=== PATIENT | female | born 1940 | race Caucasian/White ===

== ENCOUNTER 2019-04-20 15:29 | Emergency (ER) | payer MEDICARE, OTHER, SELFPAY ==
[2019-04-20 15:41] VITALS: BP 131/86; PULSE 92; RESP 16; TEMP 36.6; O2SAT 91; BMI 30.9
--- NOTE | 2019-04-20 15:51 | ED_ITS ---
HPI - Extremity Problem General: Chief complaint: Extremity Problem,Nontraumatic Stated complaint: right knee pain, swelling Time Seen by Provider: 04/20/19 15:51 Source: patient Mode of arrival: ambulatory Limitations: no limitations History of Present Illness: HPI Narrative: Patient reports turning over in bed last night to get up out of bed to go to the bathroom and felt a sudden sharp pain in her right knee. Ports difficulty of ambulating due to the pain to the knee. Patient reports some swelling to the lateral aspect of the knee. Patient appears well. Patient appears in no pain at rest. Patient has history of bilateral knee replacement. Review of Systems General: Reports: 10 or more systems reviewed and unremarkable except in HPI and below Musc: Reports: joint pain (right knee) PFSH ED PFSH: Statuses (acute, chronic, etc) shown below reflect problem list status as previously entered and may not be historically accurate Social History Smoking and tobacco status: former smoker Physical Exam Const: COMMON NORMALS: no apparent distress and oriented x3 GENERAL APPEARANCE: cooperative HENMT: COMMON NORMALS: normocephalic, external ears normal, EAC's normal, TM's normal bilaterally and external nose normal HEAD & SCALP: normal to inspection and normocephalic FACE & SINUS: normal facial exam NOSE: external nose normal GENERAL EAR: hearing not grossly impaired EXTERNAL EAR: Yes external ears normal EXTERNAL AUDITORY CANAL: EAC's normal TYMPANIC MEMBRANE: TM's normal bilaterally MOUTH: oral and palatal mucosa normal THROAT: posterior oropharynx normal Eye: COMMON NORMALS: PERRL and EOMs intact bilaterally PUPIL: Yes PERRL Neck/C-Spine: COMMON NORMALS: full ROM and no lymphadenopathy Lymph: LYMPHATIC: no lymphedema noted Chest: COMMONS NORMALS: inspection of chest normal and palpation of chest normal Resp: COMMON NORMALS: normal respiratory effort and clear to auscultation bilaterally AUSCULTATION: clear to auscultation bilaterally Cardio: COMMON NORMALS: regular rate and regular rhythm RATE: regular rate RHYTHM: regular rhythm GI: COMMON NORMALS: normal to inspection, nondistended, normoactive bowel sounds and non-tender : COMMON NORMALS: Yes no CVA tenderness BLADDER/KIDNEY EXAM: Yes no CVA tenderness Back/Pelvis: COMMON NORMALS: no CVA tenderness and thoracic and lumbar spine normal to inspection Extremity: COMMON NORMALS: normal to inspection GENERAL: Yes edema (right lateral knee) RIGHT LOWER EXTREMITY: Yes knee joint Right knee: Yes inspection (swelling lateral knee) and Yes palpation (tenderness lateral joint line) Neuro: COMMON NORMALS: oriented x3, moves all extremities and no focal motor deficits Psych: COMMON NORMALS: mental status grossly normal and cooperative Skin: COMMON NORMALS: no rashes or lesions noted GENERAL SKIN EXAM: no rashes or lesions noted Course Vital Signs: Vital signs: Vital Signs Temperature 97.9 F 04/20/19 15:41 Pulse Rate 92 04/20/19 15:41 Respiratory Rate 16 04/20/19 15:57 Blood Pressure 131/86 04/20/19 15:41 Pulse Oximetry 91 04/20/19 15:41 MDM - Extremity (Nontraumatic) MDM Narrative: Medical decision making narrative: Patient comes in today with complaints of right knee pain. Patient rolled over in bed last night and felt her knee have a sudden sharp pain. On exam we note some mild swelling to the lateral aspect of the knee joint. Distal pulses are normal. Skin is warm and dry color is pink. Differential diagnosis includes fracture, internal derangement of the knee, sprain, tendinitis. X-ray noted no bony abnormality or fracture. Reviewed exam with patient recommendations for treatment and need for follow-up. Patient was given 30 mg of ketorolac in the emergency room for pain. Patient reported some improvement of pain and reported understanding of care plan. Discharge Plan Discharge Patient Disposition: Home, Self-Care Clinical Impression: Acute pain of right knee Condition: Stable Prescriptions: New Celebrex 200 mg capsule 200 mg PO BID Qty: 10 RF: 0 Discharge Orders: Discharge Order (Routine); Ordered 04/20/19 Ordered By: Ismael Wayne Referrals: Aamir Garcia DO [Family Provider] - Discharge Diet: Usual diet Discharge Activity: Increase activity as tolerated Patient Instructions: Knee Sprain (ED) Activity Restrictions/Additional Instructions: Activity as tolerated Use walker to assist with movement Increase Celebrex to twice a day for the next 5 days Drink plenty of water with medication Use acetaminophen for further pain control Follow-up with primary care for further treatment Coding Level of Care Code 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
[2019-04-20 15:57] VITALS: RESP 16
--- NOTE | 2019-04-20 15:57 | XR_ITS ---
WS: [id number] RIGHT KNEE: 3 VIEW(S) TECHNIQUE: AP, oblique(s) and lateral. HISTORY: pain COMPARISON: None available. Prior RIGHT knee arthroplasty. Prosthetic components are in good position alignment. No fracture or l oosening. No joint space narrowing or osteophytes. Small suprapatellar joint effusion and mild soft tissue edema surrounding the knee. XR/XR knee RT 3V* [id number] IMPRESSION: 1. Status post RIGHT knee arthroplasty. No loosening or fracture. 2. Small suprapatellar effusion and soft tissue edema surrounding the knee.
[2019-04-20] MEDS: ketorolac 30 mg/mL INJ IM (16:11)
[2019-04-20 17:00] VITALS: BP 132/92; PULSE 89; RESP 16; O2SAT 96
== END 2019-04-20 17:01 | disposition home or self-care (01) ==
PROVIDERS: Emergency Provider Nurse Practitioner Family; Family Provider Internal Medicine
DX: M25.561 Pain in right knee (principal); Z87.891 Personal history of nicotine dependence
CPT/HCPCS: 73562; 96372; 99281; 99283; J1885

== ENCOUNTER 2019-04-28 15:29 | Outpatient (CLI) | payer MEDICARE, OTHER, SELFPAY ==
--- NOTE | 2019-04-28 | US_ITS ---
WS: [id number] RIGHT LOWER EXTREMITY VENOUS ULTRASOUND EXAMINATION CLINICAL INFORMATION: RIGHT LEG PAIN COMPARISON: None. FINDINGS: Thigh veins The right common femoral, femoral, popliteal, and deep femoral veins are patent and free of thrombus . The veins are normally compressible, and have normal phasic flow and augmentation response. Calf veins The paired peroneal and posterior tibial calf veins are patent bilaterally. US/ROR venous duplex LE RT IMPRESSION: No evidence of right lower extremity DVT.
== END 2019-04-28 15:30 | disposition home or self-care (01) ==
LOC: RADOUTREAD 04-29 10:15
PROVIDERS: Family Provider Internal Medicine; Visit Provider Internal Medicine
DX: Z76.89 Persons encountering health services in other specified circumstances (principal)

== ENCOUNTER 2019-05-08 10:23 | Emergency (ER) | payer MEDICARE, OTHER, SELFPAY ==
[2019-05-08 10:54] VITALS: BP 112/68; PULSE 82; RESP 18; TEMP 36.6; O2SAT 95; BMI 30.9
--- NOTE | 2019-05-08 11:10 | XR_ITS ---
WS: [id number] Right knee, 3 views, 05/08/2019 Clinical Data: pain Comparison: Right knee, 04/20/2019. Findings: The right knee arthroplasty is in good position. No loosening is seen. There are no fractures or disl ocations. The suprapatellar bursal fluid has diminished. XR/XR knee RT 3V* [id number] Impression: 1. No change in right knee arthroplasty. 2. Decrease in right suprapatellar bursal swelling.
--- NOTE | 2019-05-08 11:10 | ED_ITS ---
Entered by Nichol Rosenberg, acting as scribe for Santana Carbajal MD May 08, 2019 10:23 HPI - Extremity Problem General: Chief complaint: Extremity Problem,Nontraumatic Stated complaint: RIGHT KNEE PAIN Time Seen by Provider: 05/08/19 11:10 Source: patient Mode of arrival: wheelchair Limitations: no limitations History of Present Illness: HPI Narrative: 79 yo Female presents to ED with complaint of right knee pain. Pt states that this started about 4 weeks ago. Pt states that she woke up with pain and came into be seen and was told it was a sprain. Pt states that she had a knee replacement back in 2010. Pt states that she woke up this morning with pain again. Pt states that she went to see Dr. Garcia after her previous ER visit to get an ultrasound to make sure that she didn't have a blood clot. Pt states that she has a lot of swelling in her knee and she is worried that her knee hardware might not be in place correctly. MD Complaint: joint swelling and joint paint Onset (ago): week(s) Pain Consistency: intermittent Location: right and knee Severity scale (1-10): 9 Radiation: none Relieving factors: nothing Exacerbating factors: range of motion, weight bearing and walking Associated symptoms: Deny chest pain, fever(s) or rash Review of Systems Const: Denies: fever, chills, body aches or change in appetite Eyes: Denies: blurry vision or eye discomfort ENMT: Denies: throat pain or dental pain Card: Denies: chest pain Resp: Denies: shortness of breath GI: Denies: abdominal pain, nausea, vomiting or diarrhea : Denies: painful urination Musc: Reports: joint pain and joint swelling; Denies: neck pain or back pain Skin/Breast: Denies: rash Neuro: Denies: headache Psych: Denies: depression Sohail/Lymph: Denies: easy bruising All/Imm: Denies: hives PFS ED PFSH: Social History Smoking and tobacco status: never smoked Physical Exam Const: COMMON NORMALS: no apparent distress, oriented x3 and healthy appearing HENMT: COMMON NORMALS: normocephalic and head/scalp atraumatic HEAD & SCALP: normocephalic and atraumatic Eye: COMMON NORMALS: PERRL and EOMs intact bilaterally PUPIL: Yes PERRL Neck/C-Spine: COMMON NORMALS: full ROM and supple Chest: COMMONS NORMALS: inspection of chest normal and palpation of chest normal Resp: COMMON NORMALS: normal respiratory effort, no retractions, no use of accessory muscles and clear to auscultation bilaterally AUSCULTATION: clear to auscultation bilaterally Cardio: COMMON NORMALS: regular rate, regular rhythm and no murmurs RATE: regular rate RHYTHM: regular rhythm GI: COMMON NORMALS: normal to inspection, nondistended, normoactive bowel sounds, soft to palpation, non-tender and no masses PALPATION: Yes soft Extremity: COMMON NORMALS: full ROM; negative for normal to inspection GENERAL: Yes normal exam except as noted RIGHT LOWER EXTREMITY: Yes knee joint Right knee: Yes inspection (swelling) and Yes ROM (tenderness) Neuro: COMMON NORMALS: oriented x3, moves all extremities and no focal motor deficits Psych: COMMON NORMALS: mental status grossly normal, thought process normal and cooperative THOUGHT PROCESS: normal thought process Skin: COMMON NORMALS: no rashes or lesions noted and no wounds GENERAL SKIN EXAM: no rashes or lesions noted Course Vital Signs: Vital signs: Vital Signs Temperature 97.8 F 05/08/19 10:54 Pulse Rate 91 05/08/19 12:05 Respiratory Rate 18 05/08/19 12:05 Blood Pressure 135/85 05/08/19 12:05 Pulse Oximetry 94 05/08/19 12:05 MDM - Extremity (Nontraumatic) MDM Narrative: Medical decision making narrative: Patient presents here with knee pain likely a sprain. X-ray here shows no fracture. Exam is benign and she has no signs of septic joint. Patient is well-appearing here and is stable for discharge. She is to follow-up with Dr. Brunner in 3 to 5 days and return if worsening. Imaging Data^: XR Right knee: Radiologist's impression: [address] [place] [address] XRay Report Signed Patient: Asiya Tim #: [id number] : 9Acct#:[id number] Age/Sex: 79 / FADM Date: 05/08/19 Loc: ERRoom/Bed: Attending Dr: Ordering Provider/Ordering MD: Santana Carbajal MD Date of Service: 05/08/19 Procedure(s): XR knee RT 3V* [id number] Accession Number(s): [id number] Report Number: [id number] WS: [id number] Right knee, 3 views, 05/08/2019 Clinical Data: pain Comparison: Right knee, 04/20/2019. Findings: The right knee arthroplasty is in good position. No loosening is seen. There are no fractures or dislocations. The suprapatellar bursal fluid has diminished. XR/XR knee RT 3V* [id number] Impression: 1. No change in right knee arthroplasty. 2. Decrease in right suprapatellar bursal swelling. Dictated By:Violet Beckett MD Signed By:Violet Beckett MDSigned Date/Time:05/08/191124 DD/ 22 Discharge Plan Discharge Patient Disposition: Home, Self-Care Clinical Impression: Knee sprain Qualifiers: Encounter type: initial encounter Condition: Stable Prescriptions: New EC-Naprosyn 500 mg tablet,delayed release (DR/EC) 500 mg PO BID PRN (Reason: pain) Qty: 20 RF: 0 No Action Celebrex 200 mg capsule 200 mg PO BID Qty: 10 RF: 0 Discharge Orders: Discharge Order (Routine); Ordered 05/08/19 Ordered By: Santana Carbajal Referrals: Mary Gottlieb MD [Physician] - 4-7 days Aamir Garcia DO [Family Provider] - 4-7 days Discharge Diet: Advance as tolerated Discharge Activity: Resume usual activity Patient Instructions: Knee Sprain (ED) Discharge Date/Time: 05/08/19 12:07 Coding Level of Care Code ED 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
[2019-05-08] MEDS: naproxen 500 mg Tablet PO (11:46)
[2019-05-08 12:05] VITALS: BP 135/85; PULSE 91; RESP 18; O2SAT 94
--- NOTE | 2019-05-09 10:09 | DCPLANNER ---
intern product marketing manager had message to schedule a follow up appointment for patient with ortho. intern product marketing manager called the ortho clinic, spoke with Emeli, gave clinic patients information. intern product marketing manager was told that patients information would be printed and reviewed. Clinic will call nurse case manager and patient with appointment information.
--- NOTE | 2019-05-13 13:53 | DCPLANNER ---
Patient had an appointment scheduled for 05.12.19, patient did attend the appointment.
== END 2019-05-08 12:07 | disposition home or self-care (01) ==
PROVIDERS: Emergency Provider Emergency Medicine; Family Provider Internal Medicine
DX: S83.91XA Sprain of unspecified site of right knee, initial encounter (principal); X58.XXXA Exposure to other specified factors, initial encounter; Z96.651 Presence of right artificial knee joint
CPT/HCPCS: 73562; 99281; 99283

== ENCOUNTER → 2019-05-12 10:38 | Outpatient (BNVA) | payer MEDICARE, OTHER, SELFPAY | PROVIDERS: Family Provider Internal Medicine; Referring Provider Nurse Practitioner Family; Visit Provider Specialist | DX: M25.561 Pain in right knee (principal); Z96.651 Presence of right artificial knee joint | CPT/HCPCS: 73560; 73565 ==

== ENCOUNTER 2019-12-24 09:42 | Outpatient (CLI) | payer MEDICARE, OTHER, SELFPAY ==
--- NOTE | 2019-12-24 10:00 | FL_ITS ---
WS: [id number] UPPER GI WITH AIR TECHNICAL: Double contrast upper GI with thin and thick barium FLUOROSCOPY TIME: 3.9 minutes CLINICAL INFORMATION: R13.10 Dysphagia, unspecified COMPARISON: FINDINGS: Swallowing: Normal. Esophagus: Moderate esophageal dysmotility with tertiary contractions in the distal esophagus and sig nificant delayed emptying. 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 This is similar in appearance to 2018. Evidence of reflux esophagitis in the distal esophagus. Gastroesophageal reflux: Present Stomach: Normal. Duodenum: Normal. Other findings: Calcified breast implants. FL/FL upper GI w air* [id number] IMPRESSION: 1. Moderate esophageal dysmotility with tertiary contractions in the distal es ophagus and significant delayed emptying. 2. 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 This is similar in appearance to 2018. 3. No evidence of high-grade stricture. 4. No evidence of reflux esophagitis in the distal esophagus. 5. Reflux is visualized in the supine position to the hypopharynx. 6. Normal double contrast stomach and duodenum. *Patient completed exam without difficulty. Patient partially fainted upon step ping off the table and slowly lowered herself to the step with assistance. Macy ent was initially confused with right facial droop and no registered blood pres sure on the monitor. EMS was notified. Saturations remained above 95%. After a few minutes blood pressure returned to 140/70. Saturations remained normal but patient remained confused. EMS arrived after approximately 10 to 15 minutes fro m initial episode and Patient was taken to the ER
== END 2019-12-24 09:43 | disposition home or self-care (01) ==
PROVIDERS: Family Provider Internal Medicine; PCP Internal Medicine; Visit Provider Surgery
DX: R13.10 Dysphagia, unspecified (principal)
CPT/HCPCS: 74246

== ENCOUNTER 2019-12-24 10:56 | Emergency (ER) | payer MEDICARE, OTHER, SELFPAY ==
[2019-12-24] VITALS (20 sets, daily range): BP systolic 132–167; BP diastolic 85–112; PULSE 61–102; RESP 16–29; TEMP 36.7; O2SAT 95–100; BMI 30.6
--- NOTE | 2019-12-24 10:57 | ECG_ITS ---
[facility] [place] [facility] Date: 2019-12-24 Pat Name: Asiya Tim Department: Room: Gender: Female Vessel Traffic Officer: : 1940 Requested By: Waleska Mcknight Order Number: [id number] Florencio MD: Victor Hugo Antoine M.D. Measurements Intervals [place] Rate: 92 P: TX: -1 QRS: 94 QRSD: 106 T: 46 QT: 396 QTc: 491 Interpretive Statements ATRIAL FIBRILLATION WITH ABERRANT CONDUCTION OR VENTRICULAR PREMATURE COMPLEXES BORDERLINE RIGHT AXIS DEVIATION [QRS AXIS > 90] ABNORMAL RHYTHM ECG Compared to ECG 11/19/2017 12:36:19 Ventricular premature complex(es) now present Aberrant conduction of supraventricular beat(s) now present Sinus rhythm no longer present Electronically Signed On 12-25-2019 20:26:17 CDT by Victor Hugo Antoine M.D. [email or web address]
--- NOTE | 2019-12-24 10:57 | XRR_ITS ---
PROCEDURE INFORMATION: Exam: XR Chest, 1 View Exam date and time: 12/24/2019 11:51 AM Age: 79 years old Clinical indication: Stroke TECHNIQUE: Imaging protocol: XR of the chest Views: 1 view. COMPARISON: XR CHEST 01/10/2018 12:29 PM FINDINGS: Lungs: Bilateral bronchial wall thickening. No focal peripheral lung consolidation, air bronchogram formation, or silhouette sign. Pleural space: No pleural effusion or pneumothorax. Heart/Mediastinum: The cardiac silhouette is enlarged. The mediastinal contours are normal. Bones/joints: Prior right reverse total shoulder arthroplasty. Severe left glenohumeral joint degeneration. S-shaped curvature of the thoracic spine associated with multilevel disc degeneration. Soft tissues: Prior bilateral breast implants. XR/XR chest 1V portable [id number] IMPRESSION: 1. Cardiomegaly. 2. Acute versus chronic bronchial inflammation/edema
--- NOTE | 2019-12-24 11:02 | CT_ITS ---
WS: [id number] CT HEAD NONCONTRAST HISTORY: STROKE ALERT TECHNIQUE: Contiguous axial imaging performed through the brain in 2.5 mm imaging. Bone and soft tiss ue windows. Sagittal and coronal reformats reviewed. All CT scans at [facility] use at ast one of these dose optimization techniques: automated exposure control; mA and/or kV adjustment pe r patient size (includes targeted exams where dose is matched to clinical indication); or iterative r econstruction. DLP: 1507.73 COMPARISON: None available. Mild motion artifact. No areas of sulcal effacement. Mild chronic microvascular ischemic disease. Sma ll lacunar infarcts in the external capsules bilaterally. Prior infarct RIGHT occipital lobe. Mild atrophy. No inferior displacement of the cerebellar tonsils. Ventricles: Normal size with no hydrocephalus. Paranasal sinuses: As visualized are clear. Mastoid air cells: Well pneumatized. Calvarium and scalp: Skull is intact with no soft tissue edema or swelling. CT/CT head wo con* [id number] IMPRESSION: 1. No acute intracranial hemorrhage. 2. Mild atrophy and chronic ischemic disease and prior lacunar infarcts. Notified Waleska Hayden MD at 12/24/2019 11:13 AM.
--- NOTE | 2019-12-24 11:11 | W.ED.NEUROSD ---
HPI - Neuro Symptoms/Deficit General: Chief Complaint: Neuro Symptoms/Deficit Stated Complaint: poss stroke Time Seen by Provider: 12/24/19 10:57 History of Present Illness: HPI Narrative: This patient is an 79-year-old female who presents from [facility]. She was therefore in endoscopy. They were able to complete the study but when they were getting her up she became unresponsive and now has facial droop, aphasia and complete right-sided weakness. The onset was at 1030. She is not able to provide any further history. I spoke to her daughter who said she been in her normal state of good health. No prior history of strokes. She does not think that she is on any blood thinners. She is never heard her diagnosed with atrial fibrillation. She does have a history of Parkinson's. Time: 10:33 Timing confirmed by: other ([facility]) Location: speech, right arm, right leg and altered History of same: No Severity: severe Review of Systems General: Reports: ROS unobtainable due to mental status [facility] PFSH: Medical History CAD (coronary artery disease) Dysphagia Hyperlipidemia Hypertension MVP (mitral valve prolapse) Parkinsonian syndrome Surgical History History of total bilateral knee replacement (TKR) Family History Denies family history of Anesthesia complication Bleeding disorder Social History Smoking and tobacco status: never smoked Alcohol intake: never NIH stroke score NIHSS: Level Of Consciousness - 1a: 2 Level Of Consciousness Questions - 1b: Neither Correct Level Of Consciousness Commands - 1c: Neither Correct Best Gaze - 2: Partial Gaze Palsy Facial Palsy - 4: Complete Paralysis Motor Arm Right - 5: No Movement Motor Arm Left - 5: No Drift Motor Leg Right - 6: No Movement Motor Leg Left - 6: Effort Against [place] Best Language - 9: Mute; Global Aphasia Physical Exam Const: EXAM LIMITATIONS: altered mental status GENERAL APPEARANCE: lethargic NUTRITIONAL APPEARANCE: overweight ORIENTATION/CONSCIOUSNESS: Yes lethargic HENMT: HEAD & SCALP: normal to inspection FACE & SINUS: other (Facial droop) Eye: GENERAL EYE: appearance normal, both eyes and all related structures VISUAL ACUITY: Yes other (Unable to assess, eyes deviated to the left but not fixed) Neck/C-Spine: COMMON NORMALS: supple and no JVD Chest: COMMONS NORMALS: normal inspection of the chest Resp: COMMON NORMALS: normal respiratory effort, No use of accessory muscles and clear to auscultation bilaterally AUSCULTATION: clear to auscultation bilaterally Cardio: COMMON NORMALS: no JVD and No murmurs present (Cardio) RHYTHM: abnormal rhythm irregularly irregular GI: COMMON NORMALS: Normal to inspection, nondistended, normoactive bowel sounds present, Soft to palpation and non-tender INSPECTION: Yes normal to inspection AUSCULTATION: Yes normoactive bowel sounds PALPATION: Yes Soft to palpation Back/Pelvis: COMMON NORMALS: thoracic and lumbar spine normal to inspection Extremity: COMMON NORMALS: normal to inspection Neuro: COMMON NORMALS: no focal motor deficits SENSORIUM/ORIENTATION: Yes lethargic CRANIAL NERVES: Yes CN VII (facial) SPEECH: Total aphasia GAIT: Yes Unable to assess gait MOTOR EXAM: Abnormal motor strength present (No effort against gravity on the right side. Some effort against gravity in the left leg. Able to hold the left arm up with minimal drift) Skin: COMMON NORMALS: no rashes or lesions noted and turgor normal GENERAL SKIN EXAM: no rashes or lesions noted and turgor normal Course ED course: On arrival I went to CT with the patient. She has an obvious right-sided hemiplegia. CT did not show any acute stroke. Her blood pressure was within limits. She is not on any blood thinners. She has no contraindications to TPA. The patient was not able to participate in decision-making but her daughter was here and was able to do so. We explained the options and risks to her and she agreed to proceed with TPA. [facility] neurology was consulted and also agreed with TPA. She is going back for a CTA. She has had some improvement already. She is able to speak. She has some movement of her right leg. Her EKG does show A. fib. Vital signs are normal at this time. Reevaluation(s): Reevaluation #1: On reevaluation at approximately 1230 the patient is nearly back to baseline. She is able to speak clearly. She is moving all 4 extremities. She does have a little bit of drift on the right. I spoke again with Dr. Rodgers at [facility] and we will still go ahead and get the CTA to determine the best placement for her. Reevaluation #2: Patient has really returned to baseline. She is hungry and would like to eat. My earlier history reports that she was having an endoscopy and apparently that is incorrect. She was actually having a barium swallow study. She was not under any anesthesia. She was accepted to [facility] by Dr. Michelle. The patient's family requested that we try to find a bed closer than [facility] and although [facility] was willing to accept her we did transfer to [facility]. Vital Signs: Vital signs: Vital Signs Temperature 98.1 F 12/24/19 10:57 Pulse Rate 61 12/24/19 16:00 Respiratory Rate 18 12/24/19 18:32 Blood Pressure 132/94 12/24/19 16:00 Pulse Oximetry 98 12/24/19 16:00 MDM - Neuro Symptoms/Deficit Lab Data: Labs: Lab Results 12/24/19 12/24/19 12/24/19 Range/Units 11:00 11:00 11:13 WBC 9.2 (4.0-10.0) 10^3/ uL RBC 4.30 (4.1-5.3) 10^6/u L Hgb 12.5 (11.5-15.3) g/dL Hct 41.0 (37.0-47.0) % MCV 95.3 (81-99) fL MCH 29.1 (28.0-34.0) pg MCHC 30.5 (30.0-36.0) g/dL RDW 15.3 H (12.1-15.1) % Plt Count 404 H (130-400) 10^3/c mm MPV 9.5 (7.4-10.4) fL Neut % (Auto) 67.6 % Lymph % (Auto) 20.0 % Spencer % (Auto) 8.8 % Eos % (Auto) 2.7 % Baso % (Auto) 0.7 % Neut # (Auto) 6.21 (1.8-7.7) 10^3/u L Lymph # (Auto) 1.8 (0.8-4.8) 10^3/u L Spencer # (Auto) 0.8 (0.2-0.9) 10^3/u L Eos # (Auto) 0.3 (0.0-0.8) 10^3/u L Baso # (Auto) 0.1 (0.0-0.1) 10^3/u L Nucleated RBC % (a uto) 0 % Nucleated RBCs # 0.0 /100WBC PT Cancelled INR Cancelled APTT Cancelled Sodium Cancelled Potassium Cancelled Chloride Cancelled Carbon Dioxide Cancelled Anion Gap Cancelled BUN Cancelled Creatinine Cancelled GFR Calculation Cancelled Glucose Cancelled POC Glucose (70-110) mg/dL Calculated Osmolal ity Cancelled Calcium Cancelled Total Bilirubin Cancelled AST Cancelled ALT Cancelled Alkaline Phosphata se Cancelled Total Protein Cancelled Albumin Cancelled Globulin Cancelled Urine Color (Yellow) Urine Appearance (CLEAR) Urine pH (5-7) Ur Specific Gravit y (1.005-1.030) Urine Protein (Negative) Urine Glucose (UA) (Normal) Urine Ketones (Negative) Urine Blood (Negative) Urine Nitrate (Negative) Urine Bilirubin (Negative) Urine Urobilinogen (Negative) mg/dL Ur Leukocyte Lila ase (Negative) SARS-CoV-2 Ag (Rap id) (Negative) 12/24/19 12/24/19 12/24/19 Range/Units 11:14 11:22 11:35 WBC (4.0-10.0) 10^3/ uL RBC (4.1-5.3) 10^6/u L Hgb (11.5-15.3) g/dL Hct (37.0-47.0) % MCV (81-99) fL MCH (28.0-34.0) pg MCHC (30.0-36.0) g/dL RDW (12.1-15.1) % Plt Count (130-400) 10^3/c mm MPV (7.4-10.4) fL Neut % (Auto) % Lymph % (Auto) % Spencer % (Auto) % Eos % (Auto) % Baso % (Auto) % Neut # (Auto) (1.8-7.7) 10^3/u L Lymph # (Auto) (0.8-4.8) 10^3/u L Spencer # (Auto) (0.2-0.9) 10^3/u L Eos # (Auto) (0.0-0.8) 10^3/u L Baso # (Auto) (0.0-0.1) 10^3/u L Nucleated RBC % (a uto) % Nucleated RBCs # /100WBC PT Cancelled INR Cancelled APTT Cancelled Sodium 142 Potassium 4.3 Chloride 103 Carbon Dioxide 26 Anion Gap 17.3 BUN 25 H Creatinine 1.2 H GFR Calculation Not Reportable Glucose 122 H POC Glucose 105 (70-110) mg/dL Calculated Osmolal ity 300 H Calcium 9.8 Total Bilirubin 0.5 AST 19 ALT 19 Alkaline Phosphata se 74 Total Protein 6.9 Albumin 4.2 Globulin 2.7 Urine Color (Yellow) Urine Appearance (CLEAR) Urine pH (5-7) Ur Specific Gravit y (1.005-1.030) Urine Protein (Negative) Urine Glucose (UA) (Normal) Urine Ketones (Negative) Urine Blood (Negative) Urine Nitrate (Negative) Urine Bilirubin (Negative) Urine Urobilinogen (Negative) mg/dL Ur Leukocyte Lila ase (Negative) SARS-CoV-2 Ag (Rap id) (Negative) 12/24/19 12/24/19 12/24/19 Range/Units 12:05 13:55 15:10 WBC (4.0-10.0) 10^3/ uL RBC (4.1-5.3) 10^6/u L Hgb (11.5-15.3) g/dL Hct (37.0-47.0) % MCV (81-99) fL MCH (28.0-34.0) pg MCHC (30.0-36.0) g/dL RDW (12.1-15.1) % Plt Count (130-400) 10^3/c mm MPV (7.4-10.4) fL Neut % (Auto) % Lymph % (Auto) % Spencer % (Auto) % Eos % (Auto) % Baso % (Auto) % Neut # (Auto) (1.8-7.7) 10^3/u L Lymph # (Auto) (0.8-4.8) 10^3/u L Spencer # (Auto) (0.2-0.9) 10^3/u L Eos # (Auto) (0.0-0.8) 10^3/u L Baso # (Auto) (0.0-0.1) 10^3/u L Nucleated RBC % (a uto) % Nucleated RBCs # /100WBC PT 13.90 INR 1.04 APTT 30.2 Sodium Potassium Chloride Carbon Dioxide Anion Gap BUN Creatinine GFR Calculation Glucose POC Glucose (70-110) mg/dL Calculated Osmolal ity Calcium Total Bilirubin AST ALT Alkaline Phosphata se Total Protein Albumin Globulin Urine Color Yellow (Yellow) Urine Appearance Clear (CLEAR) Urine pH 7 (5-7) Ur Specific Gravit y 1.010 (1.005-1.030) Urine Protein Neg (Negative) Urine Glucose (UA) Norm (Normal) Urine Ketones Negative (Negative) Urine Blood Neg (Negative) Urine Nitrate Negative (Negative) Urine Bilirubin Neg (Negative) Urine Urobilinogen Neg (Negative) mg/dL Ur Leukocyte Lila ase Negative (Negative) SARS-CoV-2 Ag (Rap id) Negative (Negative) Discharge Plan Discharge Patient Disposition: Xfer Other Referrals: Aamir Garcia DO [Primary Care Provider] - Discharge Date/Time: 12/24/19 18:32 Coding Level of Care Code ED Medical Technologist for Chg Fwd Exam Comprehensive
[2019-12-24 11:18] LABS: Glucose Point of Care 105 mg/dL (70-110)
[2019-12-24 11:21] LABS: Basophils # 0.1 10^3/uL (0.0-0.1); Basophils % 0.7 %; Eosinophils # 0.3 10^3/uL (0.0-0.8); Eosinophils % 2.7 %; Hemoglobin 12.5 g/dL (11.5-15.3); Lymphocytes # 1.8 10^3/uL (0.8-4.8); Mean Corpuscular HGB Conc 30.5 g/dL (30.0-36.0); Mean Corpuscular Hemoglobin 29.1 pg (28.0-34.0); Mean Corpuscular Volume 95.3 fL (81-99); Mean Platelet Volume 9.5 fL (7.4-10.4); Monocytes # 0.8 10^3/uL (0.2-0.9); Monocytes % 8.8 %; Neutrophils # 6.21 10^3/uL (1.8-7.7); Neutrophils % 67.6 %; Nucleated Red Blood Cells % 0 %; Platelet Count 404 10^3/cmm (130-400); Red Cell Distribution Width 15.3 % (12.1-15.1); White Blood Count 9.2 10^3/uL (4.0-10.0)
--- NOTE | 2019-12-24 11:26 | CT_ITS ---
WS: [id number] CT ANGIOGRAM CEREBRAL AND CAROTID ARTERIES HISTORY: stroke TECHNIQUE: CT angiogram is performed of the carotid and cerebral arteries. During arterial injection imaging is obtained from the skull vertex to the aortic arch in 1.25 mm imaging. Coronal and sagittal reformats are submitted. Additional multi planar reformats of the carotid and cerebral arteries are submitted, MIP imaging also reviewed. NASCET criteria utilized. All CT scans at [facility] use at least one of these dose optimization techniques: automated exposure control; mA and/or kV ad justment per patient size (includes targeted exams where dose is matched to clinical indication); or iterative reconstruction. CONTRAST: Visipaque 320; 95 mL IV. DLP: 2260.25 mGy.cm COMPARISON: None available. Carotid Angiogram: Right carotid: Common carotid artery: Arises normally from the innominate artery. No significant plaque or stenosis. Internal carotid artery: No plaque or stenosis. External carotid artery: Patent. Left carotid: Common carotid artery: Arises normally from the aorta. No significant plaque or stenosis. Internal carotid artery: No plaque or stenosis. External carotid artery: Patent. Right vertebral artery: Tortuous but patent. The proximal artery is poorly visualized due to artifact from the upper thorax and breathing. Left vertebral artery: Unremarkable. Arises normally from the subclavian artery. Subclavian arteries: Limited by motion. No abnormality detected. Upper thorax: Mild interstitial thickening in the upper lung young with motion artifact. High densit y oral contrast in the mid to distal esophagus. Recent upper GI examination. There are a few mediasti nal and hilar lymph nodes. Lymph nodes are indeterminate with the largest in the RIGHT paratracheal l ocation measuring 11 mm. Thyroid gland: Normal. Osseous structures: Moderate spondylitic changes with no fracture. CEREBRAL ANGIOGRAM: Intracranial vertebral arteries: Normal with no significant atherosclerosis. Basilar artery: No significant stenosis or occlusion. No aneurysm. Intracranial Internal carotid arteries: Demonstrates no significant stenosis or plaque. Middle cerebral arteries: Normal. Anterior cerebral arteries and ACOM: Normal. Posterior cerebral arteries and PCOM's: Normal. Enlarged LEFT superior ophthalmic vein. Dural venous sinuses are normally enhancing. Mastoid air cells: Normal. Paranasal sinuses: Normal. Calvarium: Normal. CT/CT angio headneck* [id number] IMPRESSION: 1. No significant carotid artery stenosis. 2. Unremarkable [place] of [place]. 3. Enlarged tortuous LEFT superior ophthalmic vein of uncertain etiology. May be an incidental finding. Can be visualized in patients with an carotid caverno us fistula, varix, increased intracranial pressure or Graves' disease.
--- NOTE | 2019-12-24 12:11 | PC.NURSE ---
Patient becoming more alert, speech is improving. Patient asking for sister and displaying signs of pain. Sister to bedside with patient
[2019-12-24 12:32] LABS: INR 1.04 (0.8-1.2)
[2019-12-24 12:33] LABS: Partial Thromboplastin Time 30.2 SECONDS (23.9-36.7)
[2019-12-24 13:18] LABS: Alanine Aminotransferase 19 U/L (0-33); Albumin Level 4.2 g/dL (3.5-5.2); Alkaline Phosphatase 74 IU/L (35-105); Anion Gap 17.3 (5-19); Aspartate Amino Transferase 19 U/L (0-32); Blood Urea Nitrogen 25 mg/dL (8-23); Calcium 9.8 mg/dL (8.5-10.5); Carbon Dioxide 26 mmol/L (22-29); Chloride 103 mmol/L (98-107); Globulin 2.7 g/dL (1.3-4.6); Glucose 122 mg/dL (65-115); Osmolality Calculated 300 mOsm/kg (285-295); Potassium 4.3 mmol/L (3.5-5.1); Sodium 142 mmol/L (136-145); Total Bilirubin 0.5 mg/dL (0.15-1.2); Total Protein 6.9 g/dL (6.6-8.7)
[2019-12-24] MEDS: iodixanol 320 mg/mL 100mL Btl IV (13:35)
[2019-12-24 14:12] LABS: Add Urine Microscopic? NO
[2019-12-24 14:19] LABS: Bilirubin Urine Neg (Negative); Blood Urine Neg (Negative); Glucose Urine UA Norm (Normal); Ketones Urine Negative (Negative); Leukocyte Esterase Urine Negative (Negative); Nitrate Urine Negative (Negative); Protein Urine Neg (Negative); Urine Appearance Clear (CLEAR); Urine Color Yellow (Yellow); Urobilinogen Urine Neg (Negative); pH Urine 7 (5-7)
[2019-12-24 15:35] LABS: SARS Covid-2 Antigen Negative (Negative)
== END 2019-12-24 18:32 | disposition other institution (70) ==
PROVIDERS: Emergency Provider Emergency Medicine; Family Provider Internal Medicine; PCP Internal Medicine
DX: R29.810 Facial weakness (principal); R47.01 Aphasia; I25.10 Atherosclerotic heart disease of native coronary artery without angina pectoris; E78.5 Hyperlipidemia, unspecified; I10 Essential (primary) hypertension; G20 Parkinson's disease
CPT/HCPCS: 12345; 36415; 36416; 70450; 70496; 70498; 71045; 80053; 81003; 82962; 85025; 85610; 85730; 87426; 93005; 96374; 99284; 99285; J2997; Q9967

== ENCOUNTER 2020-03-25 10:39 | Outpatient (CLI) | payer MEDICARE, OTHER, SELFPAY ==
--- NOTE | 2020-03-25 10:51 | ECG_ITS ---
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 Interpretive Statements NAME OF STUDY: LEXISCAN SESTAMIBI STRESS TEST INDICATION: Congestive Heart Failure PROCEDURE: At the baseline, the EKG revealed atrial fibrillation with a controlled ventricular response rate of 85 bpm.. The baseline blood pressure was 151/96 mm Hg with a heart rate of 85 beats/min. Lexiscan was infused over a period of 20 seconds. A total of 0.4 milligrams of Lexiscan was infused. The stress phase was continued for a total of 5 minutes. Heart rate at the end of the stress phase was 92 with a blood pressure 143/72. The EKG at the peak infusion revealed no significant changes. Sestamibi was injected 20 seconds after the Lexiscan infusion. Blood pressure at the end of the recovery phase was 143/74 with a heart rate of 90 per minute. CONCLUSION: 1. No significant EKG changes with the LexiScan infusion 2. No LexiScan induced chest pain or cardiac arrhythmia 3. Normal blood pressure and heart rate response 4. Sestamibi/sestamibi perfusion scan pending; see separate report. Electronically Signed On 03-26-2020 14:08:01 [employer]OX TOE by Sally Garcia M.D. [email or web address]
--- NOTE | 2020-03-25 10:52 | NMCV_ITS ---
NM michelle perf SPECT r/s* [id number] Asiya Tim Age: 80 Gender: F : 1940 Exam Date: 03/25/2020 12:01 Ordering Phys: Kristina Anglin Technologist: YVON Chandler Exam Location: [facility] Indications: Heart failure STRESS TEST Please see separate stress test report in [facility] for full findings IMAGE PROTOCOL Rest/Stress 1 Lexiscan Day Radiopharmaceutical Dose (mCi) Administration Site Administered by Rest: Tc-99m 11.0 IV YVON Chandler Sestamibi Stress:Tc-99m 32.9 IV YVON Chandler Sestamibi Rest: 25-Mar-2020 60 Discovery 630 Stress: 25-Mar-2020 45 Discovery 630 0.4mg Lexiscan. Supine position only as patient was unable to lay prone. Patient unable to hold arms above hesd SPECT RESULTS Technical Quality: Good Raw Data Analysis: Subdiaphragmatic activity Image Corrections: No attenuation or motion correction applied Summed Stress Score: 0 Summed Rest Score: 5 Summed Difference Score: 0 PERFUSION FINDINGS Mild to moderate area of decreased uptake in the mid and apical anterior, apical septal, apical lateral and apical inferior regions. No significant reversibility was noted in these regions. FUNCTIONAL RESULTS (calculated via Gated SPECT) Stress Image LV EF (%): 21 Stress EDV (mL):145 TID: 1.04 Stress ESV (mL):115 FUNCTIONAL FINDINGS: Segmental wall motion analysis revealed severe diffuse hypokinesia of the left ventricle. IMPRESSIONS #1. Myocardial perfusion imaging revealing is small to moderate area of persistent decreased tracer uptake in the mid and apical anterior and apical segments, suggestive of myocardial scarring versus attenuation artifact. #2. LV wall motion analysis revealing diffuse hypokinesia of the left ventricle. #3. LV ejection fraction was estimated to be 21%. #4. Moderately dilated LV cavity with an end-systolic volume of 115 mL. No significant coronary ischemia, based on the above findings. No similar previous studies are available for comparison. 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 Dr Sally Garcia MD [facility] (Electronically Signed) Final Date: 25 March 2020 18:36 S
[2020-03-25] MEDS: regadenoson 0.4 Mg/5 ml Syringe IVP (12:45)
[2020-03-25 12:50] VITALS: BP 143/74; PULSE 93
== END 2020-03-25 10:40 | disposition home or self-care (01) ==
LOC: CDL 10:51
PROVIDERS: PCP Internal Medicine; Visit Provider Registered Nurse
DX: I50.22 Chronic systolic (congestive) heart failure (principal); I48.0 Paroxysmal atrial fibrillation
CPT/HCPCS: 78452; 93017; A9500; J2785

== ENCOUNTER 2020-05-07 14:49 | Outpatient (CLI) | payer MEDICARE, OTHER, SELFPAY ==
--- NOTE | 2020-05-07 14:54 | MM_ITS ---
WS: [id number] BILATERAL DIGITAL DIAGNOSTIC MAMMOGRAM MAMMOGRAPHY WITH CAD CLINICAL INFORMATION: LT BREAST LUMP/REDNESS COMPARISON: 019 TECHNIQUE: Bilateral CC, MLO, and ML views. FINDINGS: Scattered fibroglandular densities bilaterally. Heavily calcified breast implants. Punctate and lucen t centered calcifications. Palpable marker inner left breast with limited mammographic evaluation due to positioning and posterior depth. Ultrasound is pending. ULTRASOUND BREAST LEFT TECHNIQUE: Ultrasound left breast focused area of concern. CLINICAL INFORMATION: LT BREAST LUMP/REDNESS COMPARISON: None. FINDINGS: 3 hypoechoic dense lesions in the area of palpable concern appear to be contiguous with the wall of t he implant. Largest lesion at 9:00 measures 9.9 x 6.7 x 7.6 mm. Additional smaller lesion measuring 6 .7 x 3.2 x 8.1 mm. Similar-appearing Lesion at the 8:00 position measures 9.3 x 8.5 x 3.1 mm. These lesions appear imelda guous with the wall of the implant and are difficult to assess mammographically. These may represent silicone granulomas from focal rupture. Recommend breast surgery consultation for further evaluation. MM/[place] [id number] IMPRESSION: BI-RADS: 4-Suspicious Finding-Biopsy Should Be Considered FOLLOW UP: See Report 3 hypoechoic lesions in the area of palpable concern appear contiguous with the wall of the breast implant. Recommend breast surgery consultation for further evaluation.
--- NOTE | 2020-05-07 15:32 | US_ITS ---
WS: [id number] BILATERAL DIGITAL DIAGNOSTIC MAMMOGRAM MAMMOGRAPHY WITH CAD CLINICAL INFORMATION: LT BREAST LUMP/REDNESS COMPARISON: 019 TECHNIQUE: Bilateral CC, MLO, and ML views. FINDINGS: Scattered fibroglandular densities bilaterally. Heavily calcified breast implants. Punctate and lucen t centered calcifications. Palpable marker inner left breast with limited mammographic evaluation due to positioning and posterior depth. Ultrasound is pending. ULTRASOUND BREAST LEFT TECHNIQUE: Ultrasound left breast focused area of concern. CLINICAL INFORMATION: LT BREAST LUMP/REDNESS COMPARISON: None. FINDINGS: 3 hypoechoic dense lesions in the area of palpable concern appear to be contiguous with the wall of t he implant. Largest lesion at 9:00 measures 9.9 x 6.7 x 7.6 mm. Additional smaller lesion measuring 6 .7 x 3.2 x 8.1 mm. Similar-appearing Lesion at the 8:00 position measures 9.3 x 8.5 x 3.1 mm. These lesions appear imelda guous with the wall of the implant and are difficult to assess mammographically. These may represent silicone granulomas from focal rupture. Recommend breast surgery consultation for further evaluation. US/US breast LT limited* [id number] IMPRESSION: BI-RADS: 4-Suspicious Finding-Biopsy Should Be Considered FOLLOW UP: See Report 3 hypoechoic lesions in the area of palpable concern appear contiguous with the wall of the breast implant. Recommend breast surgery consultation for further evaluation.
== END 2020-05-07 14:50 | disposition home or self-care (01) ==
LOC: RADSHAW 14:50
PROVIDERS: PCP Internal Medicine; Visit Provider Internal Medicine
DX: N63.25 Unspecified lump in the left breast, overlapping quadrants (principal); L53.9 Erythematous condition, unspecified
CPT/HCPCS: 76642; 77066; 77067

== ENCOUNTER → 2020-07-09 15:17 | Outpatient (BNVA) | payer MEDICARE, OTHER, SELFPAY | PROVIDERS: PCP Internal Medicine; Visit Provider Surgery | DX: Z01.812 Encounter for preprocedural laboratory examination (principal); Z20.822 Contact with and (suspected) exposure to COVID-19 | CPT/HCPCS: 87635 ==

== ENCOUNTER 2020-07-15 11:26 | Day surgery (SDC) | payer MEDICARE, OTHER, SELFPAY ==
[2020-07-14 15:45] VITALS: BMI 30.5
[2020-07-15] VITALS (7 sets, daily range): BP systolic 139–157; BP diastolic 83–96; PULSE 69–79; RESP 16–18; TEMP 36.3–36.7; O2SAT 93–100
[2020-07-15] MEDS: midazolam 1 mg/mL INJ 2 mL 2 MG IVP (14:00)
--- NOTE | 2020-07-15 14:06 | ANES.PREANE2 ---
Pre-Anesthetic Assessment Pre-Anesthetic Assessment: Height/Weight: Height 1.63 m Weight 80.739 kg Temp Pulse Resp BP Pulse Ox 97.4 F L 76 18 139/90 96 07/15/20 12:41 07/15/20 12:41 07/15/20 12:41 07/15/20 12:41 07/15/20 12:41 Proposed Procedure: Operation Date: 07/15/20 12:55 Proposed Procedures p Left Axillary Lymph Node Biopsy 53767 R59.0(Left) - Poli Mcdaniel MD Was Beta Salinas taken within 24 hours: Yes Was Clonidine taken within 24 hours: N/A Last intake: Intake Last Liquid Date 07/14/20 Last Liquid Time 22:00 Last Solid Date 07/14/20 Last Solid Time 18:00 Social: Social History: No alcohol and No tobacco Exam: Pre-Anes Outpt Exam: alert, oriented x 3 and clear to auscultation bilaterally Airway: Submandibular: WNL Cervical ROM: WNL MP: 2 CV/HEM: CV/HEM: Afib, Arrythmia, CHF, HTN and Murmur (MR) GI: GI: GERD Metabolic: Metabolic: Morbid obesity Neuropsych: Neuropsych: CVA, Deficit and Dementia (Parkinson's) Anesthetic Plan: ASA status: 3 Anesthesia: MAC Risk of > 500 ml blood loss (7ml/kg in children): No PFSH Anesthesia PFSH: Medical History Atrial fibrillation CAD (coronary artery disease) CVA (cerebral vascular accident) Dysphagia HFrEF (heart failure with reduced ejection fraction) Hyperlipidemia Hypertension MVP (mitral valve prolapse) Parkinsonian syndrome Surgical History History of total bilateral knee replacement (TKR) Family History Denies family history of Anesthesia complication Bleeding disorder Social History Smoking and tobacco status: never smoked Alcohol intake: never Data Anesthesia Cardiac Studies: No Data to Display
--- NOTE | 2020-07-15 14:20 | W.PM.OPSUD ---
Surgery/Procedure H&P Update DATE OF PROCEDURE: July 15, 2020 DATE H&P PERFORMED: 07/06/20 H&P UPDATE INFORMATION: No changes to prior documentation PLANNED PROCEDURE: Operation Date: 07/15/20 12:55 Proposed Procedures p Left Axillary Lymph Node Biopsy [id number] R59.0(Left) - Poli Mcdaniel MD
[2020-07-15] MEDS: sodium chloride 0.9% 1,000 ML 30 ML IV (14:40)
--- NOTE | 2020-07-15 15:59 | P.OP_ITS ---
Operative Report Date of procedure: July 15, 2020 Pre-op Diagnosis: Left axillary lymphadenopathy. Post-op diagnosis: same Procedure Done: Left axillary lymph node biopsy. Specimens removed/disposition: Left axillary lymph nodes for lymph node prep. Surgeon: Poli Mcdaniel Anesthesia: MAC Estimated blood loss (mL): 5 Complications: None. Condition: stable Disposition: same day Procedure: The axillary mass was marked with the patient's help preoperatively. The patient was brought to the operating room and was placed in a supine position on the operating room table. A monitored anesthetic was induced. The left axilla was prepped and draped in a sterile fashion. A combination of 1% lidocaine with 1 to 100,000 parts epinephrine and 0.5% bupivacaine was used for local anesthesia throughout the procedure. A curvilinear incision was carried out just underneath the hairbearing area of the left axilla. Cautery was used to divide the subcutaneous tissue and palpation into the axillary region revealed that the patient had some contracted fatty tissue in the deep subcutaneous region. As this was entered and some of the tissue was divided the mass-effect completely disappeared (this was the tender area that the patient had pointed to preoperatively). Palpating within the axilla I did find a lymph node that appeared to be enlarged somewhat anteriorly. This was freed from the surrounding tissue using a combination of cautery and sharp dissection was and was completely removed. The tissue seemed to have another small adjacent lymph node in it. Both of these we re sent for a lymph node prep within the same tissue mass. The wound was irrigated with saline. Palpation revealed no additional masses. The subcutaneous tissue was brought together with a simple suture of 3-0 Vicryl and the skin was reapproximated using a running subcuticular suture of 4-0 Vicryl. Benzoin and Steri-Strips were placed over the incision and a sterile fluff dressing was applied. The patient was taken to the recovery area in stable condition postoperatively.
[2020-07-15] MEDS: HYDROcodone-acetaminophen 5-325 mg Tablet 1 TAB PO (16:49)
--- NOTE | 2020-07-15 17:17 | ANE.PACU2 ---
Inpatient post-anesthesia follow up: Airway intact: Yes Vital signs: Temperature 97.8 F Pulse Rate 79 Respiratory Rate 18 Blood Pressure 152/83 Pulse Oximetry 94 Oxygen Delivery Me thod Room Air Oxygen Flow Rate 6 Fraction of Inspir ed Oxygen Hydration adequate: Yes Nausea and vomiting: No Pain level: 1 Mental status: Baseline
[2020-07-20 05:42] LABS: Miscellaneous Test See Scanned Lab Rpt
== END 2020-07-15 17:15 | disposition home or self-care (01) ==
PROVIDERS: PCP Internal Medicine; Visit Provider Surgery
PROC: (CPT 38525; principal; 2020-07-15 12:55)
DX: R59.1 Generalized enlarged lymph nodes (principal); I48.91 Unspecified atrial fibrillation; I11.0 Hypertensive heart disease with heart failure; I50.9 Heart failure, unspecified; K21.9 Gastro-esophageal reflux disease without esophagitis; E66.01 Morbid (severe) obesity due to excess calories; Z68.31 Body mass index [BMI] 31.0-31.9, adult; Z86.73 Personal history of transient ischemic attack (TIA), and cerebral infarction without residual deficits; G20 Parkinson's disease; F02.80 Dementia in other diseases classified elsewhere, unspecified severity, without behavioral disturbance, psychotic disturbance, mood disturbance, and anxiety
CPT/HCPCS: 38525; 12345; 87015; 87070; 87102; 87116; 87176; 87205; 87206; 87801; 88184; 88185; 88305; 96374; J0690; J2250; J2405; J2704; J3010; J3490; J7030

== ENCOUNTER 2020-07-27 15:40 | Emergency (ER) | payer MEDICARE, OTHER, SELFPAY ==
[2020-07-27 16:13] VITALS: BP 107/74; PULSE 79; RESP 18; TEMP 36.5; O2SAT 95; BMI 30.5
[2020-07-27 17:16] VITALS: BP 113/65; PULSE 84; RESP 18; O2SAT 98
--- NOTE | 2020-07-27 17:37 | ED_ITS ---
HPI - Fall General: Chief Complaint: Fall Stated Complaint: FELL 1 WK AGO/PAIN, SWELLING IN R UPPER SIDE Time Seen by Provider: 07/27/20 17:11 History of Present Illness: HPI Narrative: Patient is an 80-year-old female comes to the ED with right rib pain. Patient says approximately 1 week ago she fell at her home and hit her head. Patient does take a blood thinner apixaban. She denies any loss of consciousness, numbness/tingling/weakness to extremities or face, vision changes. Patient has a watch with an emergency call button on it that she used and someone was able to come out and help patient get up. Approximately 2 days ago she started developing right sided rib pain. She says whenever she takes a deep breath she feels pain on her right ribs. She says they are tender to the touch and certain movements with her arm causes pain in her right rib. She rates her rib pain an 8 out of 10 when she does movements or takes a deep breath. She says if she is sitting still and in certain positions her right rib pain is mild. She denies any other injury to upper and lower extremities. Denies any headache, nausea/vomiting. Patient complains of having chronic neck pain but denies any increasing severity of neck pain or any change in neck pain since fall. Associated symptoms-after fall: Reports neck pain (Chronic neck pain-no acute or increasing neck pain.); Denies abdominal pain, chest pain, headache(s) or hematuria Review of Systems Const: Denies: fever(s), chills or fatigue Eyes: Denies: change in vision or eye discomfort ENMT: Denies: throat pain, odynophagia, nasal discharge or nasal congestion Card: Denies: chest pain, palpitations, edema, swelling of feet/ankles, dyspnea on exertion or orthopnea Resp: Reports: pain on inspiration (right rib pain); Denies: dyspnea, productive cough or non-productive cough GI: Denies: abdominal pain, nausea, vomiting, diarrhea, constipation or hematochezia : Denies: flank pain, dysuria or hematuria Musc: Reports: neck pain (Chronic neck pain-no acute or increasing neck pain.); Denies: back pain or extremity swelling Skin/Breast: Denies: rash or new lesions Neuro: Denies: headache(s), numbness in extremities or weakness in extremities PFSH ED PFS: Medical History Atrial fibrillation CAD (coronary artery disease) CVA (cerebral vascular accident) Dysphagia HFrEF (heart failure with reduced ejection fraction) Hyperlipidemia Hypertension MVP (mitral valve prolapse) Parkinsonian syndrome Surgical History History of total bilateral knee replacement (TKR) Family History Denies family history of Anesthesia complication Bleeding disorder Social History Smoking and tobacco status: never smoked Alcohol intake: never Physical Exam Narrative: EXAM NARRATIVE: Patient is a pleasant 80-year-old female that is lying comfortably on exam bed when I enter the room. Patient complained of right rib pain when doing movements with right arm and when she was trying to sit up in the bed. When taking a deep breath she felt sharp pain in her right rib as well. Const: COMMON NORMALS: no acute distress, patient oriented x3 and alert GENERAL APPEARANCE: cooperative and comfortable HENMT: COMMON NORMALS: normocephalic HEAD & SCALP: normocephalic; no Bailey's sign and no raccoon eyes MOUTH: Normal oral and palatal mucosa present THROAT: posterior oropharynx normal and uvula midline Eye: COMMON NORMALS: Equal, round and reactive pupils present and EOMs intact bilaterally PUPIL: Yes Equal, round and reactive pupils present Neck/C-Spine: COMMON NORMALS: supple GENERAL: Yes normal visual inspection Chest: CHEST: Yes tenderness rib right anterior-axillary line involving the 5th rib, involving the 6th rib and involving the 7th rib Resp: COMMON NORMALS: normal respiratory effort, No retractions, No use of accessory muscles and clear to auscultation bilaterally EFFORT & INSPECTION: Yes able to speak in complete sentences, No tachypneic, No respiratory distress and No labored AUSCULTATION: clear to auscultation bilaterally Cardio: COMMON NORMALS: regular rate, regular rhythm, S1 normal heart sound present, S2 normal heart sound present, No gallops present (Cardio), No clicks present (Cardio), No murmurs present (Cardio) and Peripheral pulses 2+ throughout RATE: regular rate RHYTHM: regular rhythm HEART SOUNDS: S1 normal heart sound present and S2 normal heart sound present PERIPHERAL PULSES: Peripheral pulses 2+ throughout GI: COMMON NORMALS: Normal to inspection, nondistended, normoactive bowel sounds present, Soft to palpation, non-tender and no masses PALPATION: Yes Soft to palpation : COMMON NORMALS: Yes no CVA tenderness BLADDER/KIDNEY EXAM: Yes no CVA tenderness Back/Pelvis: COMMON NORMALS: no CVA tenderness Extremity: COMMON NORMALS: normal to inspection Neuro: COMMON NORMALS: patient oriented x3, CN's II-XII intact bilaterally, moves all extremities, no focal motor deficits and no sensory deficits noted SENSORIUM/ORIENTATION: Yes alert SENSORY EXAM: Yes extremities (intact) MOTOR EXAM: 5/5 motor strength present throughout Skin: GENERAL SKIN EXAM: dry skin Course Consultations: Consultation #1: I contacted Dr. Gregg the Ortho spine doc [facility] attendant and told about patient case and CT cervical spine findings. He recommended if patient is not really having any new or increasing neck pain to not put on a cervical collar. He did say he be glad to see patient in clinic for follow-up. Time: 19:16 Vital Signs: Vital signs: Vital Signs Temperature 98.1 F 07/27/20 19:58 Pulse Rate 75 07/27/20 19:58 Respiratory Rate 16 07/27/20 19:58 Blood Pressure 128/72 07/27/20 19:58 Pulse Oximetry 95 07/27/20 19:58 MDM - Fall MDM Narrative: Medical decision making narrative: Patient is a 80-year-old female comes to the ED after having a fall a week ago. Her main complaint is pleuritic right rib pain but does admit to falling and hitting her head on the floor. Patient is on a blood thinner. She denies any loss of consciousness, neurological symptoms or shortness of breath. Patient says she has some chronic neck pain but denies any acute or worsening neck pain. Exam showed some tenderness of right ribs with palpation. And neuro exam showed no deficits. Vitals are stable. Right rib x-ray shows no acute fractures or findings. CT of head showed no acute findings. CT cervical spine showed Nondisplaced right C7 transverse process tip avulsion fracture. No vertebral body fracture is seen. I contacted Dr. Gregg the orthospine doctor told him about patient case and the CT cervical spine findings. He did not recommend putting patient in a c-collar since she is not having any worsening or acute neck pain after fall. He did state he would be happy to follow-up with patient in the clinic. Due to patient's chronic neck pain and this finding of the C7 transverse process tip avulsion I placed an order with case management for patient to be seen by Dr. Gregg. Patient diagnosed with right rib pain and cervical transverse process fracture and discharged home. I told patient she will be getting a call from case management the next couple days to get an appointment set up with Dr. Gregg. Return to ED precautions given. Patient currently has a prescription for her narcotic pain meds that she could take as needed for any severe pain. Otherwise patient wants to just take [id number] Tylenol for pain. Patient understood and agreed with plan. Imaging Data^: CXR: Attestation: I personally reviewed and interpreted this imaging study as follows: Radiologist's impression: [place] [id number] XRay Report Signed Patient: Asiya Tim V Unit #: [id number] : 1940 Age/Sex: 80 / F ADM Date: 07/27/20 Loc: ER Room/Bed: Attending Dr: Ordering Provider/Ordering MD: Sherif Verma Date of Service: 07/27/20 Procedure(s): XR ribs RT mn 3V w CXR1V 17131 Accession Number(s): [id number] Report Number: [id number] PROCEDURE INFORMATION: Exam: XR Right Ribs with PA Chest Exam date and time: 07/27/2020 6:19 PM Age: 80 years old Clinical indication: Injury or trauma; Rib area; Blunt trauma (contusions or hematomas); Injury details: Fall x 9 days, right sided rib pain; Prior surgery; Surgery type: RT axillary lymph node removed, breast aug; Additional info: Fall with right rib pain TECHNIQUE: Imaging protocol: XR Right ribs with PA chest. Views: 3 views COMPARISON: CR XR chest 1V portable [id number] 12/24/2019 11:38 AM FINDINGS: Lungs: Lungs are clear. Pleural spaces: There is no pleural effusion or pneumothorax. Heart/Mediastinum: Unremarkable. Bones/joints: There is an intact and well aligned right shoulder prosthesis. 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 There is no acute fracture. XR/XR ribs RT mn 3V w CXR1V [id number] IMPRESSION: No acute fracture. Dictated By: Horacio Menchaca MD Signed By: Horacio Menchaca MD Signed Date/Time: 07/27/201856 DD/ [address]: Attestation: I personally reviewed and interpreted this imaging study as follows: Radiologist's impression: [address] [address] [address] Scan Report Signed with Addenda Patient: Asiya Tim V Unit #: [id number] : 1940 Age/Sex: 80 / F ADM Date: 07/27/20 Loc: ER Room/Bed: Attending Dr: Ordering Provider/Ordering MD: Sherif Verma Date of Service: 07/27/20 Procedure(s): CT cervical spin wo con* [id number] Accession Number(s): [id number] Report Number: [id number]/CT cervical spin wo con* [id number] The COMPARISON heading should read as follows- COMPARISON: 12/24/2019 CTA of the neck Radiation Dose CTDIVOL = (mGy): DLP = 559.28 (mGy-cm) Addendum Dictated By: Fortunato Gilmore MD Addendum Signed By: Fortunato Gilmore MD Signed Date/Time: 07/27/201902 Addendum Cosigned By: PROCEDURE INFORMATION: Exam: CT Cervical Spine Without Contrast Exam date and time: 07/27/2020 6:15 PM Age: 80 years old Clinical indication: Injury or trauma; Blunt trauma; Injury details: Fall x 9 days; Additional info: Fall and hit head TECHNIQUE: Imaging protocol: Computed tomography images of the cervical spine without contrast. Radiation optimization: All CT scans at this facility use at least one of these dose optimization techniques: automated exposure control; mA and/or kV adjustment per patient size (includes targeted exams where dose is matched to clinical indication); or iterative reconstruction. COMPARISON: CR XR knees AP WB w RT lmt ORTH 05/12/2019 10:46 AM RADIATION DOSE METRICS: Total DLP (mGy-cm): 559.28 FINDINGS: Moderate degenerative changes are observed in the cervical spine. Multilevel facet and partial vertebral body bony fusion changes are present in the mid to lower cervical spine. Tiny nondisplaced fracture of the inferolateral tip of the right C7 transverse process is appreciated. No vertebral body fracture is visualized. Mild anterolisthesis of C3 over C4 is noted CT/CT cervical spin wo con* [id number] IMPRESSION: Nondisplaced right C7 transverse process tip avulsion fracture. No vertebral body fracture is seen. Radiation Dose CTDIVOL = (mGy): DLP = 559.28 (mGy-cm) Dictated By: Fortunato Gilmore MD Signed By: Fortunato Gilmore MD Signed Date/Time: 07/27/201901 DD/ 00 CT Head: Attestation: I personally reviewed and interpreted this imaging study as follows: Radiologist's impression: [address] [address] [address] Scan Report Signed Patient: Asiya Tim V Unit #: [id number] : 1940 Age/Sex: 80 / F ADM Date: 07/27/20 Loc: ER Room/Bed: Attending Dr: Ordering Provider/Ordering MD: Sherif Verma Date of Service: 07/27/20 Procedure(s): CT head wo con* [id number] Accession Number(s): [id number] Report Number: [id number] PROCEDURE INFORMATION: Exam: CT Head Without Contrast Exam date and time: 07/27/2020 6:15 PM Age: 80 years old Clinical indication: Injury or trauma; Blunt trauma (contusions or hematomas); Injury details: Fall x 9 days, bruise to the left side of forehead; Additional info: Fall and hit head TECHNIQUE: Imaging protocol: Computed tomography of the head without contrast. Radiation optimization: All CT scans at this facility use at least one of these dose optimization techniques: automated exposure control; mA and/or kV adjustment per patient size (includes targeted exams where dose is matched to clinical indication); or iterative reconstruction. COMPARISON: CT head wo con* [id number] 12/24/2019 10:50 AM RADIATION DOSE METRICS: Total DLP (mGy-cm): 781.92 FINDINGS: Brain: Small small medial right occipital lobe chronic infarction is noted. Mild atrophy and mild white matter chronic microvascular changes are noted. No hemorrhage or evidence of acute infarction is seen. Cerebral ventricles: No ventriculomegaly. Bones/joints: Unremarkable. No acute fracture. Paranasal sinuses: Visualized sinuses are unremarkable. No fluid levels. Mastoid air cells: Visualized mastoid air cells are well aerated. Soft tissues: Unremarkable. CT/CT head wo con* [id number] IMPRESSION: No acute intracranial abnormality. Radiation Dose CTDIVOL = (mGy): DLP = 781.92 (mGy-cm) Dictated By: Fortunato Gilmore MD Signed By: Fortunato Gilmore MD Signed Date/Time: 07/27/201856 DD/ 55 Discharge Plan Discharge Patient Disposition: Home Clinical Impression: Rib pain on right side Cervical transverse process fracture Qualifiers: Encounter type: initial encounter Fracture type: closed Qualified Code(s): S12.9XXA - Fracture of neck, unspecified, initial encounter Fall as cause of accidental injury at home as place of occurrence Qualifiers: Encounter type: initial encounter Qualified Code(s): W19.XXXA - Unspecified fall, initial encounter Condition: Stable Prescriptions: No Action duloxetine 60 mg capsule,delayed release(DR/EC) 60 mg PO DAILY RF: 0 pantoprazole [Protonix] 40 mg tablet,delayed release (DR/EC) 40 mg PO DAILY RF: 0 simvastatin [Zocor] 20 mg tablet 20 mg PO DAILY RF: 0 carbidopa-levodopa 25-100 mg tablet 1 tab PO BID RF: 0 magnesium 250 mg tablet 250 mg PO DAILY RF: 0 apixaban 5 mg tablet 5 mg PO BID RF: 0 baclofen 5 mg tablet 5 mg PO TID RF: 0 docusate sodium 50 mg/5 mL liquid 100 mg PO DAILY RF: 0 metoprolol tartrate 25 mg tablet 12.5 mg PO BID RF: 0 midodrine 5 mg tablet 5 mg PO TID Qty: 90 RF: 0 hydrocodone-acetaminophen 5-325 mg tablet 1 - 2 tab PO Q5H PRN (Reason: pain) Qty: 25 RF: 0 Discharge Orders: Discharge ED (Routine); Ordered 07/27/20 Ordered By: Sherif Verma Referrals: Aamir Garcia DO [Primary Care Provider] - Discharge Diet: Regular Discharge Activity: Increase activity as tolerated and Limit activity as i nstructed Patient Instructions: Rib Fracture (ED), Fall Prevention for Older Adults (ED) Activity Restrictions/Additional Instructions: Follow-up with medical provider as directed. Case management will be contacting you in the next several days set up an appointment with Dr. Gregg the Ortho Spine Doctor. Continue taking all home medications as previously prescribed. Apply cold pack on neck and right ribs to help with symptoms. Rest and limit activity and lifting until improvement of right rib pain. Return to the ER or your medical provider if condition worsens. Please read and understand discharge instructions. Thank you for choosing [facility] for your healthcare needs today. Please realize this is an emergency room and that we are providing you with a medical screening exam and this may not be complete and all inclusive of all the testing and or work up that you may need to determine your ailment or severity of your illness. It is very important that you follow up as instructed or that you return to the Emergency Department should you have concerns or if your condition changes or worsens in any way. Coding Level of Care Code ED Manager Program Management for Jailene Cameron Exam Comprehensive
--- NOTE | 2020-07-27 17:44 | CTR_ITS ---
PROCEDURE INFORMATION: Exam: CT Cervical Spine Without Contrast Exam date and time: 07/27/2020 6:15 PM Age: 80 years old Clinical indication: Injury or trauma; Blunt trauma; Injury details: Fall x 9 days; Additional info: Fall and hit head TECHNIQUE: Imaging protocol: Computed tomography images of the cervical spine without contrast. Radiation optimization: All CT scans at this facility use at least one of these dose optimization techniques: automated exposure control; mA and/or kV adjustment per patient size (includes targeted exams where dose is matched to clinical indication); or iterative reconstruction. COMPARISON: CR XR knees AP WB w RT lmt ORTH 05/12/2019 10:46 AM RADIATION DOSE METRICS: Total DLP (mGy-cm): 559.28 FINDINGS: Moderate degenerative changes are observed in the cervical spine. Multilevel facet and partial vertebral body bony fusion changes are present in the mid to lower cervical spine. Tiny nondisplaced fracture of the inferolateral tip of the right C7 transverse process is appreciated. No vertebral body fracture is visualized. Mild anterolisthesis of C3 over C4 is noted CT/CT cervical spin wo con* [id number] IMPRESSION: Nondisplaced right C7 transverse process tip avulsion fracture. No vertebral body fracture is seen. Radiation Dose CTDIVOL = (mGy): DLP = 559.28 (mGy-cm)
[2020-07-27 17:47] VITALS: BP 113/85; PULSE 87; RESP 18; O2SAT 97
[2020-07-27 19:58] VITALS: BP 128/72; PULSE 75; RESP 16; TEMP 36.7; O2SAT 95
--- NOTE | 2020-07-28 08:22 | DCPLANNER ---
retail branch manager had message to schedule a follow up appointment for patient with Dr. Gregg at ortho. retail branch manager called the ortho clinic, spoke with Mouna, gave clinic patients information. retail branch manager was told that patients information would be printed and reviewed. Clinic will call patient with appointment information.
--- NOTE | 2020-07-30 14:45 | DCPLANNER ---
Patient has a follow up appointment scheduled for , August 12, 2020 at 3:[address] Gregg. Clinic will call patient with appointment information
--- NOTE | 2020-10-05 07:55 | DCPLANNER ---
Patient had a follow up appointment scheduled for 08.12.[address] Gregg at [facility] - patient did attend appointment.
== END 2020-07-27 20:00 | disposition home or self-care (01) ==
PROVIDERS: Emergency Provider Physician Assistant; PCP Internal Medicine
DX: R07.81 Pleurodynia (principal); S12.9XXA Fracture of neck, unspecified, initial encounter; I25.10 Atherosclerotic heart disease of native coronary artery without angina pectoris; Z86.73 Personal history of transient ischemic attack (TIA), and cerebral infarction without residual deficits; E78.5 Hyperlipidemia, unspecified; I10 Essential (primary) hypertension; W19.XXXA Unspecified fall, initial encounter; Z79.01 Long term (current) use of anticoagulants
CPT/HCPCS: 70450; 71101; 72125; 99283

== ENCOUNTER 2021-01-07 15:19 | Outpatient (CLI) | payer MEDICARE, OTHER, SELFPAY ==
--- NOTE | 2021-01-07 15:45 | CT_ITS ---
WS: [id number] Exam: CT chest wo con [id number] Date/Time of Exam: 01/07/2021 3:32 PM Reason For Exam: Rule out interstitial lung disease DLP: 608.[address] scans at [facility] use at least one of these dose optimization techniques: automated e xposure control; mA and/or kV adjustment per patient size (includes targeted exams where dose is matc hed to clinical indication); or iterative reconstruction. The chest is evaluated in the axial plane with sagittal and coronal reformatted images. No previous s tudies. The lungs are fully expanded. There are no acute infiltrates. No significant interstitial lung diseas e is seen. There is minimal bronchiectasis in the lower lobes. A 13 mm soft tissue nodule with coarse calcification is seen in the left lower lobe with several vessels extending into and from this lesio n. This is likely a vascular malformation or hemangioma. No other nodules were identified. The heart is enlarged. The thoracic aorta is normal in caliber. Single mildly prominent anterior pericarinal ly mph node measuring about 1 cm at greatest short axis dimension and containing coarse calcification. T his does not have suspicious appearance. No other sign of lymphadenopathy. The airway is patent. Mild coronary calcifications are seen. There is retraction of the left nipple with dimpling of the skin. This likely represents postoperative change from the relatively recent biopsy. CT/CT chest wo con [id number] IMPRESSION: 1. 13 mm soft tissue nodule with coarse calcifications seen in the left lower l obe with several vessels extending into and from the lesion. This has the appea shari of a vascular malformation or hemangioma. 2. The lungs are otherwise clear. No sign of significant interstitial lung dise ase. Minimal bronchiectasis in the lower lung zones. 3. Single mildly prominent anterior pericarinal lymph node with coarse calcific ation that measures approximately a centimeter greatest short axis dimension. T his does not have suspicious appearance. No other sign of lymphadenopathy. 4. Left nipple retraction and dimpling of the skin that may be secondary to rec ent left breast surgery. This should be correlated clinically.
== END 2021-01-07 15:20 | disposition home or self-care (01) ==
PROVIDERS: PCP Internal Medicine; Visit Provider Internal Medicine Pulmonary Disease
DX: R06.02 Shortness of breath (principal)
CPT/HCPCS: 71250